=== PATIENT | female | born 1990 | race Caucasian/White ===

== ENCOUNTER → 2022-03-27 12:20 | Outpatient (BNVA) | payer SELFPAY | PROVIDERS: Family Provider Family Medicine; PCP Internal Medicine; Visit Provider Registered Nurse Neonatal Intensive Care | DX: N39.0 Urinary tract infection, site not specified (principal); R31.9 Hematuria, unspecified | CPT/HCPCS: 81000 ==

== ENCOUNTER 2022-04-29 17:26 | Emergency (ER) | payer BC, MEDICAID, SELFPAY ==
[2022-04-29 17:32] VITALS: BP 132/78; PULSE 71; RESP 16; TEMP 36.9; O2SAT 100; BMI 25.0
--- NOTE | 2022-04-29 18:40 | CTR_ITS ---
PROCEDURE INFORMATION: Exam: CT Abdomen And Pelvis Without Contrast Exam date and time: 04/29/2022 7:55 PM Age: 31 years old Clinical indication: Abdominal pain; Epigastric; Additional info: Upper ab pain; N/v/d, unable to eat due to pain/vomiting TECHNIQUE: Imaging protocol: Computed tomography of the abdomen and pelvis without contrast. Axial, coronal and sagittal reformatted images were created and reviewed. Radiation optimization: All CT scans at this facility use at least one of these dose optimization techniques: automated exposure control; mA and/or kV adjustment per patient size (includes targeted exams where dose is matched to clinical indication); or iterative reconstruction. COMPARISON: [facility] OB > 14 weeks 05/27/2017 9:30 AM RADIATION DOSE METRICS: Total DLP (mGy-cm): 464.03 FINDINGS: Liver: Unremarkable. Gallbladder and bile ducts: No radiodense gallstones. No biliary ductal dilatation. Pancreas: Unremarkable. Spleen: Unremarkable. Adrenal glands: Normal. No mass. Kidneys and ureters: No mass. No radiodense calculi. No hydronephrosis. Stomach and bowel: No bowel wall thickening. No obstruction. No pneumatosis. Appendix: Normal. Intraperitoneal space: Trace nonspecific free pelvic fluid, likely physiologic. No organized fluid collection. No free air. Vasculature: Unremarkable. No aneurysm. Lymph nodes: No pathologically enlarged lymph nodes. Urinary bladder: Unremarkable as visualized. Reproductive: Unremarkable. Bones/joints: No acute osseous abnormality. Soft tissues: Tiny, fat containing umbilical hernia. CT/CT abdomen pelvis con [id number] IMPRESSION: 1. Limited noncontrast examination without CT evidence of acute intra-abdominal or pelvic pathology. 2. Additional findings, as above.
--- NOTE | 2022-04-29 18:41 | W.ED.ABDPA2 ---
HPI - Abdominal Pain General: Chief Complaint: Nausea/Vomiting/Diarrhea Stated Complaint: n/v Time Seen by Provider: 04/29/22 18:18 Source: patient and family Mode of arrival: ambulatory Limitations: no limitations History of Present Illness: Patient is a nice 31-year-old female presents to ED today with a complaint of upper abdominal pain, nausea, vomiting. Patient states about 3 weeks ago their entire household had a stomach bug consisted of abdominal cramps, nausea, vomiting, diarrhea. Patient states since that time all of the other family members have recovered but patient continues to be in significant discomfort. She states most of her pain is in her epigastric region. She states she is vomiting upwards of 8-9 times a day. She reports she has zero appetite and states anytime she eats/drinks she vomits. No bloody emesis. She is occasionally still having diarrhea. MD elicited complaint: abdominal pain Pertinent past history: none Onset (ago): week(s) Pain Consistency: intermittent Location: Epigastric Severity: severe Quality: sharp Radiation: none Migration to: no migration Exacerbating factors: eating Relieving factors: nothing Associated Symptoms: Reports diarrhea, nausea and vomiting; Denies chills, dysuria, fever(s), hematuria, hematemesis and melena Related Data: Patient : No Review of Systems Const: Denies: fever(s), chills, body aches, fatigue or malaise Card: Denies: chest pain Resp: Denies: dyspnea GI: Reports: abdominal pain, nausea, vomiting and diarrhea; Denies: hematemesis or melena : Denies: flank pain, dysuria, hematuria or pelvic pain Musc: Denies: neck pain, back pain, extremity pain or joint pain Skin/Breast: Denies: rash Neuro: Denies: headache(s), numbness in extremities, weakness in extremities or sensory changes Physical Exam Const: COMMON NORMALS: average body habitus, patient oriented x3, no limitations, alert and well nourished GENERAL APPEARANCE: cooperative and in distress (looks uncomfortable secondary to pain) ORIENTATION/CONSCIOUSNESS: Yes awake, Yes oriented to person and Yes oriented to time HENMT: COMMON NORMALS: normocephalic and atraumatic HEAD & SCALP: normal to inspection, normocephalic and atraumatic Chest: COMMONS NORMALS: normal inspection of the chest and normal palpation of entire chest wall Resp: COMMON NORMALS: normal respiratory effort and clear to auscultation bilaterally AUSCULTATION: clear to auscultation bilaterally Cardio: COMMON NORMALS: regular rate and regular rhythm RATE: regular rate RHYTHM: regular rhythm GI: COMMON NORMALS: Normal to inspection, nondistended, normoactive bowel sounds present, Soft to palpation, No hepatosplenomegaly present and no masses INSPECTION: Yes normal to inspection AUSCULTATION: Yes normoactive bowel sounds PALPATION: Yes Soft to palpation, Yes Tenderness to palpation present (GI) (epigastric ), No Guarding due to palpation present (GI), No Rigid due to palpation and Yes No hepatosplenomegaly present : COMMON NORMALS: Yes no CVA tenderness BLADDER/KIDNEY EXAM: Yes no CVA tenderness Back/Pelvis: COMMON NORMALS: no CVA tenderness Extremity: COMMON NORMALS: normal to inspection GENERAL: Yes normal exam except as noted Neuro: SHAHZAD COMA SCALE: document GCS findings Shahzad coma scale eye opening: Spontaneous Shahzad coma scale verbal response: Orientated Shahzad coma scale motor response: Obey commands [place] coma scale total score: 15 COMMON NORMALS: patient oriented x3, moves all extremities, no focal motor deficits, no sensory deficits noted and gait normal SENSORIUM/ORIENTATION: Yes alert, Yes oriented to person and Yes oriented to time Skin: COMMON NORMALS: no rashes or lesions noted GENERAL SKIN EXAM: no rashes or lesions noted Course Vital Signs: Vital signs: Vital Signs Temperature 98.5 F 04/29/22 17:32 Pulse Rate 58 L 04/29/22 20:59 Respiratory Rate 16 04/29/22 20:59 Blood Pressure 147/84 04/29/22 20:59 Pulse Oximetry 97 04/29/22 20:59 Oxygen Delivery Me thod 04/29/22 17:32 MDM - Abdominal Pain Medical Decision Making Patient tells me she got significant relief following the GI cocktail-states she is having zero discomfort currently. Patient's vital signs are stable. Her blood work is unremarkable. CT scan showing no evidence of acute intra-abdominal or pelvic pathology. We will go ahead and place her on Carafate, Protonix, and something to help with nausea/vomiting. Recommend follow-up with primary care in 1 to 2 weeks for re-evaluation. Return to ED precautions given. Lab Data : 04/29/22 18:57 04/29/22 18:57 Labs/Radiology: Radiology Impressions Abdomen/Pelvis CT 04/29/22 18:40 IMPRESSION: 1. Limited noncontrast examination without CT evidence of acute intra-abdominal or pelvic pathology. 2. Additional findings, as above. Laboratory Results WBC 9.7 10^3/uL (4.0-10.0) 04/29/22 18:57 RBC 4.06 10^6/uL (4.1-5.3) L 04/29/22 18:57 Hgb 12.0 g/dL (11.5-15.3) 04/29/22 18:57 Hct 37.0 % (37.0-47.0) 04/29/22 18:57 MCV 91.1 fl (81-99) 04/29/22 18:57 MCH 29.6 pg (28.0-34.0) 04/29/22 18:57 MCHC 32.4 g/dL (30.0-36.0) 04/29/22 18:57 RDW 12.3 % (12.1-15.1) 04/29/22 18:57 Plt Count 246 10^3/cmm (130-400) 04/29/22 18:57 MPV 10.6 fL (7.4-10.4) H 04/29/22 18:57 Neut % (Auto) 70.2 % 04/29/22 18:57 Lymph % (Auto) 21.9 % 04/29/22 18:57 [place] % (Auto) 6.3 % 04/29/22 18:57 Eos % (Auto) 1.2 % 04/29/22 18:57 Baso % (Auto) 0.2 % 04/29/22 18:57 Neut # (Auto) 6.81 10^3/uL (1.8-7.7) 04/29/22 18:57 Lymph # (Auto) 2.1 10^3/uL (0.8-4.8) 04/29/22 18:57 [place] # (Auto) 0.6 10^3/uL (0.2-0.9) 04/29/22 18:57 Eos # (Auto) 0.1 10^3/uL (0.0-0.8) 04/29/22 18:57 Baso # (Auto) 0.0 10^3/uL (0.0-0.1) 04/29/22 18:57 Nucleated RBC % (auto) 0 % 04/29/22 18:57 Nucleated RBCs # 0.0 /100WBC 04/29/22 18:57 Sodium 139 mmol/L (136-145) 04/29/22 18:57 Potassium 3.4 mmol/L (3.5-5.1) L 04/29/22 18:57 Chloride 103 mmol/L (98-107) 04/29/22 18:57 Carbon Dioxide 23 mmol/L (22-29) 04/29/22 18:57 Anion Gap 16.4 (5-19) 04/29/22 18:57 BUN 10 mg/dL (6-20) 04/29/22 18:57 Creatinine 0.7 mg/dL (0.5-0.9) 04/29/22 18:57 GFR Calculation 98.9 mL/min (90-130) 04/29/22 18:57 Glucose 90 mg/dL (65-115) 04/29/22 18:57 Calculated Osmolality 287 mOsm/kg (285-295) 04/29/22 18:57 Calcium 8.9 mg/dL (8.5-10.5) 04/29/22 18:57 Total Bilirubin 1.2 mg/dL (0.15-1.2) 04/29/22 18:57 AST 16 U/L (0-32) 04/29/22 18:57 ALT 25 U/L (0-33) 04/29/22 18:57 Alkaline Phosphatase 79 U/L (35-105) 04/29/22 18:57 Total Protein 7.1 g/dL (6.6-8.7) 04/29/22 18:57 Albumin 4.1 g/dL (3.5-5.2) 04/29/22 18:57 Globulin 3.0 g/dL (1.3-4.6) 04/29/22 18:57 Lipase 17 U/L (13-60) 04/29/22 18:57 HCG, Qual Negative (Negative) 04/29/22 18:57 Discharge Plan Discharge Patient Disposition: Home Clinical Impression: Epigastric abdominal pain Condition: Stable Prescriptions: New Carafate 1 gram tablet 1 g PO TID 14 Days Qty: 42 0RF Protonix 40 mg tablet,delayed release (DR/EC) 40 mg PO BID 14 Days Qty: 28 0RF promethazine 25 mg tablet 25 mg PO TID PRN (Reason: nausea and vomiting) Qty: 14 0RF Discharge Orders: Discharge ED (Routine); Ordered 04/29/22 Ordered By: Carmen De Jesus Patient Instructions: Abdominal Pain (ED) Coding Level of Care Code ED St[employer] for Chg Fwd Exam Comprehensive
[2022-04-29] MEDS: lidocaine 2% viscous 15 ML, aluminum-mag hydrox-simethicon 30 ML, sucralfate oral liq 1 GM PO (19:10)
[2022-04-29] MEDS: metoclopramide 5 mg/mL SDV 2 mL 10 MG IVP (19:15)
[2022-04-29] MEDS: sodium chloride 0.9% 1,000 ML 999 ML IV (19:15)
[2022-04-29 19:20] VITALS: RESP 16
[2022-04-29] MEDS: morphine 4 mg/mL SDV 1 mL IVP (19:20)
[2022-04-29 19:38] LABS: Basophils % 0.2 %; Eosinophils # 0.1 10^3/uL (0.0-0.8); Eosinophils % 1.2 %; HCG, Serum Qual Negative (Negative); Lymphocytes # 2.1 10^3/uL (0.8-4.8); Lymphocytes % 21.9 %; Mean Corpuscular HGB Conc 32.4 g/dL (30.0-36.0); Mean Corpuscular Hemoglobin 29.6 pg (28.0-34.0); Mean Corpuscular Volume 91.1 fl (81-99); Mean Platelet Volume 10.6 fL (7.4-10.4); Monocytes # 0.6 10^3/uL (0.2-0.9); Monocytes % 6.3 %; Neutrophils # 6.81 10^3/uL (1.8-7.7); Neutrophils % 70.2 %; Nucleated Red Blood Cells % 0 %; Platelet Count 246 10^3/cmm (130-400); Red Blood Count 4.06 10^6/uL (4.1-5.3); Red Cell Distribution Width 12.3 % (12.1-15.1); White Blood Count 9.7 10^3/uL (4.0-10.0)
[2022-04-29 19:50] LABS: Albumin Level 4.1 g/dL (3.5-5.2); Alkaline Phosphatase 79 U/L (35-105); Anion Gap 16.4 (5-19); Aspartate Amino Transferase 16 U/L (0-32); Blood Urea Nitrogen 10 mg/dL (6-20); Calcium 8.9 mg/dL (8.5-10.5); Carbon Dioxide 23 mmol/L (22-29); Chloride 103 mmol/L (98-107); Glomerular Filtration Rate 98.9 mL/min (90-130); Glucose 90 mg/dL (65-115); Lipase 17 U/L (13-60); Osmolality Calculated 287 mOsm/kg (285-295); Potassium 3.4 mmol/L (3.5-5.1); Sodium 139 mmol/L (136-145); Total Bilirubin 1.2 mg/dL (0.15-1.2); Total Protein 7.1 g/dL (6.6-8.7)
[2022-04-29 20:00] LABS: Alanine Aminotransferase 25 U/L (0-33)
[2022-04-29 20:59] VITALS: BP 147/84; PULSE 58; RESP 16; O2SAT 97
== END 2022-04-29 21:00 | disposition home or self-care (01) ==
PROVIDERS: Emergency Provider Physician Assistant
DX: R10.13 Epigastric pain (principal)
CPT/HCPCS: 74176; 80053; 83690; 84703; 85025; 96374; 96375; 99285; J2270; J2765; J7030

== ENCOUNTER 2022-08-09 08:23 | Emergency (ER) | payer BC, MEDICAID, SELFPAY ==
[2022-08-09 08:27] VITALS: BP 132/71; PULSE 123; RESP 16; TEMP 37.1; O2SAT 100; BMI 25.9
--- NOTE | 2022-08-09 08:44 | US_ITS ---
WS: [id number] ULTRASOUND ABDOMEN CLINICAL INFORMATION: RUQ abd pain COMPARISON: CT April 29, 2022 FINDINGS: Liver Size: Normal. Craniocaudal length: 13.8 cm. Echogenicity: Normal. Surface nodularity: None. Mass (size and location): None. Bile ducts Intrahepatic ducts: Normal. Common bile duct diameter: 0.4 cm. Gallbladder Normal. Gallstones: None. Gallbladder sludge: None. Gallbladder wall thickening: None. Pericholecystic fluid: None. Sonographic Ybarra sign: Absent. Pancreas Normal as visualized. Spleen Splenomegaly: None. Craniocaudal length: 10.2 cm. Right kidney: Normal. Hydronephrosis: None. Size: 10.3 cm x 5.1 cm x 4.5 cm Left kidney: Normal. Hydronephrosis: None. Size: 10.5 cm x 5.0 cm x 3.8 cm. Abdominal aorta and IVC Visualized portions are normal. Ascites: None. US/US abdomen complete* [id number] IMPRESSION: Normal abdominal ultrasound
--- NOTE | 2022-08-09 08:53 | W.ED.ABDPA2 ---
HPI - Abdominal Pain General: Chief Complaint: Abdominal Pain Stated Complaint: abd pains Time Seen by Provider: 08/09/22 08:23 Source: patient Mode of arrival: ambulatory History of Present Illness: 31-year-old female presents emergency room complaining of abdominal pain and diarrhea for the last week. Localizes abdominal pain to the epigastric area. No hematochezia melena hematemesis coffee-ground emesis she has had some acholic stools and mucousy stools. No recent oral antibiotics. She denies any dysuria urgency or frequency. She has had similar episodes in the past related to dyspepsia as she was previously on a proton pump inhibitor but ran out. No history of upper GI bleeds. MD elicited complaint: abdominal pain Onset (ago): week(s) (1) Pain Consistency: constant Location: Epigastric Severity: moderate Quality: cramping Radiation: RUQ and R flank Exacerbating factors: nothing Relieving factors: nothing Associated Symptoms: Denies anorexia, belching, bloating, change in bowel habits, change in stool character, chills, coffee ground emesis, constipation, GI cramping, diarrhea, dyspepsia, dysuria, excessive flatus, fever(s), heartburn, hematochezia, hematuria, hematemesis, fecal incontinence, loose stools, melena, nausea, poor appetite, syncope and vomiting Review of Systems Const: Denies: fever(s) or chills Card: Denies: syncope GI: Denies: nausea, vomiting, hematemesis, coffee ground emesis, heartburn, diarrhea, constipation, bloating, GI cramping, belching, excessive flatus, fecal incontinence, change in bowel habits, change in stool character, hematochezia or melena : Denies: dysuria or hematuria PFS ED PFSH: Social History Smoking and tobacco status: current every day smoker Course Vital Signs: Vital signs: Vital Signs Temperature 98.7 F 08/09/22 09:24 Pulse Rate 120 H 08/09/22 09:24 Respiratory Rate 16 08/09/22 09:24 Blood Pressure 132/71 08/09/22 09:24 Pulse Oximetry 100 08/09/22 09:24 Oxygen Delivery Ok thod 08/09/22 09:24 MDM - Abdominal Pain Medical Decision Making Nonacute abdomen on exam. Urine liver functions normal minimal elevation of white count. Improved with IV fluids we will start on omeprazole. Gallbladder ultrasound unremarkable follow-up with primary care if symptoms persist. Medical Records I reviewed the patient's medical records. Lab Data I reviewed the patient's lab results. 08/09/22 08:45 12 08:45 Labs/Radiology: Radiology Impressions Abdomen Ultrasound 08/09/22 08:44 IMPRESSION: Normal abdominal ultrasound Laboratory Results WBC 10.7 10^3/uL (4.0-10.0) H 08/09/22 08:45 RBC 4.70 10^6/uL (4.1-5.3) 08/09/22 08:45 Hgb 13.9 g/dL (11.5-15.3) 08/09/22 08:45 Hct 42.6 % (37.0-47.0) 08/09/22 08:45 MCV 90.6 fl (81-99) 08/09/22 08:45 MCH 29.6 pg (28.0-34.0) 08/09/22 08:45 MCHC 32.6 g/dL (30.0-36.0) 08/09/22 08:45 RDW 13.0 % (12.1-15.1) 08/09/22 08:45 Plt Count 279 10^3/cmm (130-400) 08/09/22 08:45 MPV 9.8 fL (7.4-10.4) 08/09/22 08:45 Neut % (Auto) 79.7 % 08/09/22 08:45 Lymph % (Auto) 15.4 % 08/09/22 08:45 [place] % (Auto) 3.7 % 08/09/22 08:45 Eos % (Auto) 0.6 % 08/09/22 08:45 Baso % (Auto) 0.4 % 08/09/22 08:45 Neut # (Auto) 8.51 10^3/uL (1.8-7.7) H 08/09/22 08:45 Lymph # (Auto) 1.6 10^3/uL (0.8-4.8) 08/09/22 08:45 [place] # (Auto) 0.4 10^3/uL (0.2-0.9) 08/09/22 08:45 Eos # (Auto) 0.1 10^3/uL (0.0-0.8) 08/09/22 08:45 Baso # (Auto) 0.0 10^3/uL (0.0-0.1) 08/09/22 08:45 Nucleated RBC % (auto) 0 % 08/09/22 08:45 Nucleated RBCs # 0.0 /100WBC 08/09/22 08:45 Sodium 138 mmol/L (136-145) 08/09/22 08:45 Potassium 3.8 mmol/L (3.5-5.1) 08/09/22 08:45 Chloride 104 mmol/L (98-107) 08/09/22 08:45 Carbon Dioxide 22 mmol/L (22-29) 08/09/22 08:45 Anion Gap 15.8 (5-19) 08/09/22 08:45 BUN 10 mg/dL (6-20) 08/09/22 08:45 Creatinine 0.7 mg/dL (0.5-0.9) 08/09/22 08:45 GFR Calculation 98.9 mL/min (90-130) 08/09/22 08:45 Glucose 101 mg/dL (65-115) 08/09/22 08:45 Calculated Osmolality 285 mOsm/kg (285-295) 08/09/22 08:45 Calcium 9.4 mg/dL (8.5-10.5) 08/09/22 08:45 Total Bilirubin 1.4 mg/dL (0.15-1.2) H 08/09/22 08:45 AST 12 U/L (0-32) 08/09/22 08:45 ALT 8 U/L (0-33) 08/09/22 08:45 Alkaline Phosphatase 75 U/L (35-105) 08/09/22 08:45 Total Protein 8.0 g/dL (6.6-8.7) 08/09/22 08:45 Albumin 4.5 g/dL (3.5-5.2) 08/09/22 08:45 Globulin 3.5 g/dL (1.3-4.6) 08/09/22 08:45 Lipase 13 U/L (13-60) 08/09/22 08:45 HCG, Qual Negative (Negative) 08/09/22 08:45 Urine Color Yellow (Yellow) 08/09/22 09:20 Urine Appearance Clear (CLEAR) 08/09/22 09:20 Urine pH 8 (5-7) H 08/09/22 09:20 Ur Specific [place] 1.015 (1.005-1.030) 08/09/22 09:20 Urine Protein Neg (Negative) 08/09/22 09:20 Urine Glucose (UA) Norm (Normal) 08/09/22 09:20 Urine Ketones Negative (Negative) 08/09/22 09:20 Urine Blood Neg (Negative) 08/09/22 09:20 Urine Nitrate Negative (Negative) 08/09/22 09:20 Urine Bilirubin Neg (Negative) 08/09/22 09:20 Prot Sulfosalicylic Acd Negative (Negative) 08/09/22 09:20 Urine Urobilinogen Neg mg/dL (Negative) 08/09/22 09:20 Ur Leukocyte Esterase Negative (Negative) 08/09/22 09:20 Discharge Plan Discharge Patient Disposition: Home Clinical Impression: GERD (gastroesophageal reflux disease) Condition: Stable Prescriptions: New omeprazole 20 mg capsule,delayed release(DR/EC) 20 mg PO DAILY 56 Days Qty: 60 0RF Discharge Orders: Discharge ED (Routine); Ordered 08/09/22 Ordered By: Isauro Espitia Discharge Diet: Usual diet Discharge Activity: Resume usual activity Patient Instructions: GERD (Gastroesophageal Reflux Disease) (ED), Opioid Safety, Pain Management Activity Restrictions/Additional Instructions: You are seen for abdominal discomfort today. Your abdominal exam did not any indicate an acute intra-abdominal pathology the laboratory test showed normal liver functions and very minimally elevated white count. Urine was negative given your history of stomach issues suspect some of this is dyspepsia and reflux we will start you back on the omeprazole. Gallbladder ultrasound was negative if symptoms persist follow-up with your primary care doctor for further evaluation as needed. Coding Level of Care Code ED Rehabilitation Services Aide for Geoffrey Nelson
[2022-08-09 08:55] LABS: Basophils % 0.4 %; Eosinophils # 0.1 10^3/uL (0.0-0.8); Eosinophils % 0.6 %; Hematocrit 42.6 % (37.0-47.0); Hemoglobin 13.9 g/dL (11.5-15.3); Lymphocytes # 1.6 10^3/uL (0.8-4.8); Lymphocytes % 15.4 %; Mean Corpuscular HGB Conc 32.6 g/dL (30.0-36.0); Mean Corpuscular Hemoglobin 29.6 pg (28.0-34.0); Mean Corpuscular Volume 90.6 fl (81-99); Mean Platelet Volume 9.8 fL (7.4-10.4); Monocytes # 0.4 10^3/uL (0.2-0.9); Monocytes % 3.7 %; Neutrophils # 8.51 10^3/uL (1.8-7.7); Neutrophils % 79.7 %; Nucleated Red Blood Cells % 0 %; Platelet Count 279 10^3/cmm (130-400); White Blood Count 10.7 10^3/uL (4.0-10.0)
[2022-08-09] MEDS: ondansetron 2 mg/ML SDV 2 mL 4 MG IVP (08:56)
[2022-08-09] MEDS: sodium chloride 0.9% 1,000 ML 999 ML IV ×2 (08:58→09:26)
[2022-08-09 09:10] LABS: Alanine Aminotransferase 8 U/L (0-33); Albumin Level 4.5 g/dL (3.5-5.2); Alkaline Phosphatase 75 U/L (35-105); Anion Gap 15.8 (5-19); Aspartate Amino Transferase 12 U/L (0-32); Blood Urea Nitrogen 10 mg/dL (6-20); Calcium 9.4 mg/dL (8.5-10.5); Carbon Dioxide 22 mmol/L (22-29); Chloride 104 mmol/L (98-107); Globulin 3.5 g/dL (1.3-4.6); Glomerular Filtration Rate 98.9 mL/min (90-130); Glucose 101 mg/dL (65-115); Lipase 13 U/L (13-60); Osmolality Calculated 285 mOsm/kg (285-295); Potassium 3.8 mmol/L (3.5-5.1); Sodium 138 mmol/L (136-145); Total Bilirubin 1.4 mg/dL (0.15-1.2)
[2022-08-09 09:12] LABS: HCG, Serum Qual Negative (Negative)
[2022-08-09 09:24] VITALS: BP 132/71; PULSE 120; RESP 16; TEMP 37.1; O2SAT 100
[2022-08-09 09:25] LABS: Add Urine Microscopic? NO; Charge for UA Resulting for Rev
[2022-08-09 09:29] LABS: Bilirubin Urine Neg (Negative); Blood Urine Neg (Negative); Glucose Urine UA Norm (Normal); Ketones Urine Negative (Negative); Leukocyte Esterase Urine Negative (Negative); Nitrate Urine Negative (Negative); Protein Urine Neg (Negative); Specific Gravity, Urine 1.015 (1.005-1.030); Sulfosalicylic Acid Urine Negative (Negative); Urine Appearance Clear (CLEAR); Urine Color Yellow (Yellow); Urobilinogen Urine Neg (Negative); pH Urine 8 (5-7)
[2022-08-09 10:04] VITALS: BP 132/71; PULSE 120; RESP 16; TEMP 37.1; O2SAT 100
== END 2022-08-09 10:05 | disposition home or self-care (01) ==
PROVIDERS: Emergency Provider Family Medicine
DX: K21.9 Gastro-esophageal reflux disease without esophagitis (principal); F17.210 Nicotine dependence, cigarettes, uncomplicated
CPT/HCPCS: 76700; 80053; 81003; 83690; 84703; 85025; 96374; 99285; J2405; J7030

== ENCOUNTER 2022-08-09 16:36 | Emergency (ER) | payer BC, MEDICAID, SELFPAY ==
[2022-08-09 16:42] VITALS: BP 116/80; PULSE 107; RESP 19; TEMP 36.8; O2SAT 95; BMI 25.9
[2022-08-09] MEDS: ondansetron 4 MG Tablet PO (19:36)
[2022-08-09 19:38] VITALS: BP 124/79; PULSE 99; RESP 16; O2SAT 97
--- NOTE | 2022-08-09 19:48 | W.ED.NAVMDI ---
HPI - Nausea/Vomiting/Diarrhea General: Chief complaint: Nausea/Vomiting/Diarrhea Stated complaint: abd pain Time Seen by Provider: 08/09/22 19:25 Source: patient and family Mode of arrival: ambulatory Limitations: no limitations History of Present Illness: This patient returns to the emergency department. She states that she felt better for short period of time and then returned home and began having episodes of vomiting again. She states she has kind of all over abdominal pain and cannot located to any particular 1 1 region. Denies any blood in her stool or blood in her vomitus. She denies any known exposure to infectious disease. She states when she gets the urge to vomit she gets chills but she is not any documented fevers. She denies any known exposure to infectious disease, food related issues etc. He had 3 C-sections but no other abdominal surgeries. No history of biliary tract disease. No recent travel or recent antibiotic use. She does admit to vaping marijuana multiple times a day and has done so for quite some time. Associated nausea: Yes Associated symtoms: Reports anxiety and nausea; Denies change in vision, chest pain, dysuria, headache(s) or palpitations Review of Systems Const: Reports: chills; Denies: fever(s) or body aches Eyes: Denies: change in vision ENMT: Denies: throat pain, odynophagia, nasal congestion or nasal obstruction Card: Denies: chest pain, palpitations or irregular heart rhythm Resp: Denies: dyspnea or productive cough GI: Reports: abdominal pain, nausea, vomiting and diarrhea; Denies: hematemesis or hematochezia : Denies: flank pain, difficulty voiding or dysuria Musc: Reports: back pain; Denies: neck pain, extremity pain, extremity swelling or joint pain Skin/Breast: Denies: rash or pruritus Neuro: Denies: headache(s), numbness in extremities or weakness in extremities Psych: Reports: anxiety; Denies: depression Endo: Denies: polyuria or polydipsia [facility] ED PFSH: Social History Smoking and tobacco status: current every day smoker Physical Exam Narrative: EXAM NARRATIVE: Patient makes good eye contact. Her answers questions in a goal-directed fashion. She appears to be somewhat anxious Const: COMMON NORMALS: patient oriented x3 and alert GENERAL APPEARANCE: cooperative and anxious NUTRITIONAL APPEARANCE: overweight ORIENTATION/CONSCIOUSNESS: Yes awake HENMT: COMMON NORMALS: normocephalic, atraumatic, Normal nasal mucous membranes and turbinates present, moist oral mucous membranes and oropharynx normal HEAD & SCALP: normocephalic and atraumatic FACE & SINUS: normal facial exam NOSE: Normal nasal mucous membranes and turbinates present Eye: COMMON NORMALS: Equal, round and reactive pupils present, EOMs intact bilaterally, conjunctivae normal and no scleral icterus CONJUNCTIVA: Yes conjunctivae normal PUPIL: Yes Equal, round and reactive pupils present Neck/C-Spine: COMMON NORMALS: full ROM, no lymphadenopathy, supple and Thyroid normal THYROID: Thyroid normal Chest: COMMONS NORMALS: normal inspection of the chest Resp: COMMON NORMALS: normal respiratory effort, No retractions, No use of accessory muscles and clear to auscultation bilaterally AUSCULTATION: clear to auscultation bilaterally Cardio: COMMON NORMALS: regular rate, regular rhythm, No murmurs present (Cardio) and Peripheral pulses 2+ throughout RATE: regular rate RHYTHM: regular rhythm PERIPHERAL PULSES: Peripheral pulses 2+ throughout GI: COMMON NORMALS: Normal to inspection, nondistended, normoactive bowel sounds present OTHER: Abdominal examination reveals her abdomen to be soft to palpation. She has multiple areas of subjective tenderness but no rebound or guarding. No ecchymosis, skin rashes etc. No masses. : COMMON NORMALS: Yes no CVA tenderness BLADDER/KIDNEY EXAM: Yes no CVA tenderness Back/Pelvis: COMMON NORMALS: no CVA tenderness, thoracic and lumbar spine normal to inspection, no thoracic nor lumbar tenderness and straight leg raise negative bilaterally SACROILIAC JOINTS: Yes SI joint(s) abnormal SI joint details: tender to palpation (Right side) Extremity: COMMON NORMALS: normal to inspection, capillary refill normal, no calf tenderness and no pedal edema Neuro: COMMON NORMALS: patient oriented x3, moves all extremities, no focal motor deficits and no sensory deficits noted SENSORIUM/ORIENTATION: Yes alert Psych: COMMON NORMALS: mental status grossly normal, Normal thought process present and denies hallucinations SPEECH: Yes rapid MOOD & AFFECT: Yes anxious THOUGHT PROCESS: Normal thought process present Skin: COMMON NORMALS: no rashes or lesions noted, no wounds and turgor normal GENERAL SKIN EXAM: no rashes or lesions noted and turgor normal Course Reevaluation(s): Reevaluation #1: Patient is markedly better. She states she has having no pain no nausea vomiting etc. Desires to be discharged from the emergency department. She is in much better spirits makes good eye contact, is more calm speech is not pressured is interacting appropriately with family. Again reviewed the potential for cannabis induced vomiting syndrome and she should make attempts to avoid cannabis and see if that helps improve herself in the long run Time: 21:41 Vital Signs: Vital signs: Vital Signs Temperature 98.2 F 08/09/22 16:42 Pulse Rate 99 08/09/22 19:38 Respiratory Rate 16 08/09/22 19:38 Blood Pressure 124/79 08/09/22 19:38 Pulse Oximetry 97 08/09/22 19:38 Oxygen Delivery Me thod 08/09/22 19:38 MDM - Nausea/Vomiting/Diarrhea Medical Decision Making Patient with a history of generalized abdominal pain which has been subject to evaluations in no evidence of intra-abdominal pathology or perturbations in her laboratories have been noted. She does have a history of cannabis use which suggest that this may be a potential etiology of her symptoms. She has no findings this evening on clinical examination suggest an acute surgical abdomen and her prior imaging studies were reviewed as well. She responded well to haloperidol and diphenhydramine IV as well as IV fluids and is stable at this time. She is suitable to be discharged to outpatient management with caution against continued use of cannabis. Medical Records I reviewed the patient's medical records. CT scan from April of this year as well as abdominal ultrasound from today reviewed- no acute findings. Lab Data I reviewed the patient's lab results. 08/09/22 20:09 08/09/22 20:09 Laboratory Results WBC 9.0 10^3/uL (4.0-10.0) 08/09/22 20:09 RBC 4.10 10^6/uL (4.1-5.3) 08/09/22 20:09 Hgb 12.2 g/dL (11.5-15.3) 08/09/22 20: Hct 37.5 % (37.0-47.0) 08/09/22 20: MCV 91.5 fl (81-99) 08/09/22 20: MCH 29.8 pg (28.0-34.0) 08/09/22 20:09 MCHC 32.5 g/dL (30.0-36.0) 08/09/22 20:09 RDW 13.0 % (12.1-15.1) 08/09/22 20:09 Plt Count 242 10^3/cmm (130-400) 08/09/22 20:09 MPV 9.8 fL (7.4-10.4) 08/09/22 20:09 Neut % (Auto) 68.7 % 08/09/22 20:09 Lymph % (Auto) 23.5 % 08/09/22 20:09 [place] % (Auto) 6.7 % 08/09/22 20:09 Eos % (Auto) 0.6 % 08/09/22 20:09 Baso % (Auto) 0.3 % 08/09/22 20:09 Neut # (Auto) 6.15 10^3/uL (1.8-7.7) 08/09/22 20:09 Lymph # (Auto) 2.1 10^3/uL (0.8-4.8) 08/09/22 20:09 [place] # (Auto) 0.6 10^3/uL (0.2-0.9) 08/09/22 20:09 Eos # (Auto) 0.1 10^3/uL (0.0-0.8) 08/09/22 20:09 Baso # (Auto) 0.0 10^3/uL (0.0-0.1) 08/09/22 20:09 Nucleated RBC % (auto) 0 % 08/09/22 20:09 Nucleated RBCs # 0.0 /100WBC 08/09/22 20:09 Sodium 139 mmol/L (136-145) 08/09/22 20:09 Potassium 3.4 mmol/L (3.5-5.1) L 08/09/22 20:09 Chloride 110 mmol/L (98-107) H 08/09/22 20:09 Carbon Dioxide 16 mmol/L (22-29) L 08/09/22 20:09 Anion Gap 16.4 (5-19) 08/09/22 20:09 BUN 9 mg/dL (6-20) 08/09/22 20:09 Creatinine 0.7 mg/dL (0.5-0.9) 08/09/22 20:09 GFR Calculation 98.9 mL/min (90-130) 08/09/22 20:09 Glucose 106 mg/dL (65-115) 08/09/22 20:09 Calculated Osmolality 287 mOsm/kg (285-295) 08/09/22 20:09 Calcium 9.2 mg/dL (8.5-10.5) 08/09/22 20:09 Total Bilirubin 1.5 mg/dL (0.15-1.2) H 08/09/22 20:09 AST 12 U/L (0-32) 08/09/22 20:09 ALT 7 U/L (0-33) 08/09/22 20:09 Alkaline Phosphatase 64 U/L (35-105) 08/09/22 20:09 Total Protein 7.3 g/dL (6.6-8.7) 08/09/22 20:09 Albumin 4.1 g/dL (3.5-5.2) 08/09/22 20:09 Globulin 3.2 g/dL (1.3-4.6) 08/09/22 20:09 Lipase 17 U/L (13-60) 08/09/22 20:09 Discharge Plan Discharge Patient Disposition: Home Clinical Impression: Cannabis hyperemesis syndrome concurrent with and due to cannabis abuse Condition: Stable Prescriptions: No Action omeprazole 20 mg capsule,delayed release(DR/EC) 20 mg PO DAILY 56 Days Qty: 60 0RF Discharge Orders: Discharge ED (Routine); Ordered 08/09/22 Ordered By: Dk Potts Discharge Diet: Usual diet Discharge Activity: Resume usual activity Patient Instructions: Opioid Safety, Pain Management Activity Restrictions/Additional Instructions: As we discussed your symptoms may be due to your use of cannabis. We recommend decreasing the frequency and amount of cannabis to see if that helps her symptoms. If that does not improve you or your symptoms return or worsen or other symptoms improve ensue such as fever persistent vomiting diarrhea abdominal pain etc. return to this or the nearest emergency department. Coding Level of Care Code ED Electronic Scanner Operator for Geoffrey Nelson Exam Comprehensive
[2022-08-09] MEDS: haloperidol inj 5 mg/mL INJ 1 mL IVP (19:56)
[2022-08-09] MEDS: diphenhydrAMINE 50 mg/mL SDV 1mL IVP (20:01)
[2022-08-09] MEDS: lactated ringers 1,000 ML 999 ML IV (20:03)
[2022-08-09 20:20] LABS: Basophils % 0.3 %; Eosinophils # 0.1 10^3/uL (0.0-0.8); Eosinophils % 0.6 %; Hematocrit 37.5 % (37.0-47.0); Hemoglobin 12.2 g/dL (11.5-15.3); Lymphocytes # 2.1 10^3/uL (0.8-4.8); Lymphocytes % 23.5 %; Mean Corpuscular HGB Conc 32.5 g/dL (30.0-36.0); Mean Corpuscular Hemoglobin 29.8 pg (28.0-34.0); Mean Corpuscular Volume 91.5 fl (81-99); Mean Platelet Volume 9.8 fL (7.4-10.4); Monocytes # 0.6 10^3/uL (0.2-0.9); Monocytes % 6.7 %; Neutrophils # 6.15 10^3/uL (1.8-7.7); Neutrophils % 68.7 %; Nucleated Red Blood Cells % 0 %; Platelet Count 242 10^3/cmm (130-400)
[2022-08-09 20:42] LABS: Alanine Aminotransferase 7 U/L (0-33); Albumin Level 4.1 g/dL (3.5-5.2); Alkaline Phosphatase 64 U/L (35-105); Anion Gap 16.4 (5-19); Aspartate Amino Transferase 12 U/L (0-32); Blood Urea Nitrogen 9 mg/dL (6-20); Calcium 9.2 mg/dL (8.5-10.5); Carbon Dioxide 16 mmol/L (22-29); Chloride 110 mmol/L (98-107); Globulin 3.2 g/dL (1.3-4.6); Glomerular Filtration Rate 98.9 mL/min (90-130); Glucose 106 mg/dL (65-115); Lipase 17 U/L (13-60); Osmolality Calculated 287 mOsm/kg (285-295); Potassium 3.4 mmol/L (3.5-5.1); Sodium 139 mmol/L (136-145); Total Bilirubin 1.5 mg/dL (0.15-1.2); Total Protein 7.3 g/dL (6.6-8.7)
[2022-08-09 22:10] VITALS: BP 109/58; PULSE 80; RESP 16; O2SAT 98
== END 2022-08-09 22:11 | disposition home or self-care (01) ==
PROVIDERS: Emergency Provider Emergency Medicine
DX: R11.11 Vomiting without nausea (principal); F12.10 Cannabis abuse, uncomplicated; F17.210 Nicotine dependence, cigarettes, uncomplicated
CPT/HCPCS: 80053; 83690; 85025; 96374; 96375; 99284; J1200; J1630; J7120; Q0162

== ENCOUNTER → 2023-06-11 09:38 | Outpatient (BNVA) | payer BC, MEDICAID, SELFPAY | PROVIDERS: Visit Provider Family Medicine | DX: K29.70 Gastritis, unspecified, without bleeding; Z02.89 Encounter for other administrative examinations; K58.9 Irritable bowel syndrome, unspecified; F17.200 Nicotine dependence, unspecified, uncomplicated | CPT/HCPCS: 80053; 80061; 84439; 84443; 85025 ==

== ENCOUNTER → 2024-08-09 11:54 | Outpatient (BNVA) | payer MEDICAID, SELFPAY | PROVIDERS: PCP Family Medicine; Visit Provider Emergency Medicine | DX: N39.0 Urinary tract infection, site not specified (principal) | CPT/HCPCS: 81000 ==